=== PATIENT | female | born 1955 | race Caucasian/White ===

== ENCOUNTER → 2017-02-10 | Outpatient (CLI) | payer BC ==
--- NOTE | 2017-02-10 16:05 | MY ---
EXAMINATION: Bilateral digital mammography utilizing CAD. HISTORY: Screening exam. Comparison is made to previous studies dated 02/12/2016, 02/08/2015, 013. FINDINGS: Bilateral scattered fibroglandular densities. No suspicious calcifications, masses or a rchitectural distortions. No pathologic appearing lymph nodes, no abnormal skin thickening or nipp le inversion. CAD highlighted regions appear normal at this time. IMPRESSION: BI-RADS category I - negative mammogram. Continued screening according to ACR-ACS gu idelines suggested. THE FALSE-NEGATIVE RATE OF MAMMOGRAM IS APPROXIMATELY 10%. MANAGEMENT OF A PALPABLE ABNORMALITY MUST BE BASED UPON CLINICAL GROUNDS. SENSITIVITY FOR DETECTION OF ABNORMALITIES IN DENSE BREASTS IS LOW. NOTE: A letter will be sent to the patient regarding findings. [facility] -- PRAVEENA Suarez [phone] - FAX [phone]
== END ==
LOC: MW.MAM 09:54
PROVIDERS: ATTEND Obstetrics & Gynecology
DX: Z12.31 Encounter for screening mammogram for malignant neoplasm of breast (principal)
CPT/HCPCS: G0202; G0202-26

== ENCOUNTER 2019-07-05 15:08 | Observation (INO) | payer BC ==
[2019-07-05] MEDS ORDERED: Sodium Chloride 0.9% 10 ML Syringe FLUSH PRN (15:16)
[2019-07-05] MEDS ORDERED: Sodium Chloride 0.9% 2.5 ML Syringe FLUSH PRN (15:16)
[2019-07-05] MEDS ORDERED: Aspirin 81 MG Tab.Chew PO ONE (15:21)
--- NOTE | 2019-07-05 15:21 | EDM.PDOC ---
ED HPI GENERAL MEDICAL PROBLEM - General Stated Complaint: CHEST PAIN Time Seen by Provider: 07/05/19 15:15 Source of Information: Reports: Patient History Limitations: Reports: No Limitations - History of Present Illness INITIAL COMMENTS - FREE TEXT/NARRATIVE: HISTORY AND PHYSICAL: History of present illness: Patient is a 64-year-old female presenting to the emergency room for "chest pain ". Patient states that she has been "feeling funny for the last 2-3 days, especially at night". She informed me that she thought it was "just acid reflux however when I would wake up the next morning I would still have the pain". States pain is right above her heart, rating it at a 4 out of 10. Patient states it is constant and it radiates to the right side of her neck and in between her shoulders. Patient states she is also been "feeling weak, can't concentrate, and having [heart] fluttering". Patient states that earlier today she also had numbness and tingling in her extremities. She states she also feels short of breath right now, nauseous, and has a "really bad headache" in which "both eyes hurt". Patient states she used to smoke, but quit when she was approximately 29 years old. Patient denies any fever, chills, change in vision, syncope or near syncope. Denies any back pain or cough. Denies any abdominal pain, vomiting, diarrhea, constipation or dysuria. Has not noted any blood in urine or stool. Patient has been eating and drinking appropriately. Review of systems: As per history of present illness and below otherwise all systems reviewed and negative. Past medical history: As per history of present illness and as reviewed below otherwise noncontributory. Surgical history: As per history of present illness and as reviewed below otherwise noncontributory. Social history: See social history for further information Family history: As per history of present illness and as reviewed below otherwise noncontributory. Physical exam: General: Well-developed and well-nourished 64-year-old female. Alert and oriented. Nontoxic appearing and in no acute distress. HEENT: Atraumatic, normocephalic, pupils equal and reactive bilaterally, negative for conjunctival pallor or scleral icterus, mucous membranes moist, TMs normal bilaterally, throat clear, neck supple, nontender, trachea midline. No drooling or trismus noted. No meningeal signs. No hot potato voice noted. Lungs: Clear to auscultation, breath sounds equal bilaterally, chest nontender. Heart: S1S2, regular rate and rhythm without overt murmur Abdomen: Soft, nondistended, nontender. Negative for masses or hepatosplenomegaly. Negative for costovertebral tenderness. Skin: Intact, warm, dry. No lesions or rashes noted. Extremities: Atraumatic, moves all extremities per self without difficulty or deficits, negative for cords or calf pain. Neurovascular unremarkable. Neuro: Awake, alert, oriented. Cranial nerves II through XII unremarkable. Cerebellum unremarkable. Motor and sensory unremarkable throughout. Exam nonfocal. Notes: Patient had an echocardiogram done on 06/03/2018: Left ventricular ejection fraction estimated at 60-65%. Trace mitral and tricuspid valve regurgitation. Normal right ventricular systolic function. Chest pain went from a 5 to a 0 after 2 nitroglycerin. Her vital signs remained stable. Lab work is unremarkable. EKG shows a sinus rhythm with a rate of 79. We did talk about admission, she would like to stay. Dr. Purdy was consulted on her case. She will stay for observation with telemetry. Diagnostics: CBC, CMP, EKG, Troponin, Chest x-ray, TSH, UA Therapeutics: Aspirin, Saline Lock Impression: Chest Pain r/o SD Plan: Observation admission Definitive disposition and diagnosis as appropriate pending reevaluation and review of above. HEAD Pain Score (Numeric/FACES): 5 - Related Data Allergies Allergy/AdvReac Type Severity Reaction Status Date / Time No Known Allergies Allergy Verified 07/05/19 15:19 Home Meds: Home Meds Fluticasone Propionate [Flonase Allergy Relief] 1 spray NASBOTH DAILY 05/09/16 [ History] Propylene Glycol/Peg 400 [Systane Ultra 0.4-0.3% Eye Drp] 1 drop EYEBOTH ASDIRECTED 05/09/16 [History] Vit A/Vit C/Vit E/Zinc/Copper [Preservision] 1 tab PO BID 05/09/16 [History] Past Medical History HEENT History: Reports: Allergic Rhinitis, Otitis Media, Sinusitis Other HEENT History: wears glasses Cardiovascular History: Reports: None Respiratory History: Other Respiratory History: states possible sleep apnea, not diagnosed Gastrointestinal History: Reports: GERD Genitourinary History: Reports: None [employer] History: Reports: Musculoskeletal History: Reports: Back Pain, Chronic Neurological History: Reports: None Psychiatric History: Reports: None Endocrine/Metabolic History: Reports: None Hematologic History: Reports: None Immunologic History: Reports: None Oncologic (Cancer) History: Reports: None Dermatologic History: Reports: None - Past Surgical History HEENT Surgical History: Reports: Cataract Surgery ED ROS GENERAL - Review of Systems Review Of Systems: ROS reveals no pertinent complaints other than HPI. ED EXAM, GENERAL - Physical Exam Exam: See Below (See dictation) Course - Vital Signs Last Recorded V/S: Last Vital Signs Temp 97.4 F 07/05/19 15:16 Pulse 78 07/05/19 16:06 Resp 18 07/05/19 16:06 BP 105/53 L 07/05/19 16:06 Pulse Ox 96 07/05/19 16:06 - Orders/Labs/Meds Orders: Active Orders 24 hr Category Date Time Status Admission Status [Patient Status] [ADT] Stat ADT 07/05/19 16:18 Active EKG Documentation Completion [RC] STAT Care 07/05/19 15:16 Active UA RFX CHRISTOFER AND CULT IF INDIC [URIN] Stat Lab 07/05/19 15:16 Ordered Nitroglycerin [Nitrostat] Med 07/05/19 15:23 Active 0.4 mg SL Q5M PRN Sodium Chloride 0.9% [Normal Saline] 1,000 ml Med 07/05/19 16:00 Active IV STAT Sodium Chloride 0.9% [Saline Flush] Med 07/05/19 15:16 Active 10 ml FLUSH ASDIRECTED PRN Sodium Chloride 0.9% [Saline Flush] Med 07/05/19 15:16 Active 2.5 ml FLUSH ASDIRECTED PRN Saline Lock Insert [OM.PC] Stat Oth 07/05/19 15:16 Ordered Medication Orders Sodium Chloride (Normal Saline) 1,000 mls @ 999 mls/hr IV STAT ANTONY Last Admin: 07/05/19 15:51 Dose: 999 mls/hr Nitroglycerin (Nitrostat) 0.4 mg SL Q5M PRN PRN Reason: Chest Pain Last Admin: 07/05/19 15:43 Dose: 0.4 mg Admin: 07/05/19 15:38 Dose: 0.4 mg Sodium Chloride (Saline Flush) 10 ml FLUSH ASDIRECTED PRN PRN Reason: Keep Vein Open Last Admin: 07/05/19 15:38 Dose: 10 ml Sodium Chloride (Saline Flush) 2.5 ml FLUSH ASDIRECTED PRN PRN Reason: Keep Vein Open Last Admin: 07/05/19 15:38 Dose: 2.5 ml Labs: Laboratory Tests 07/05/19 07/05/19 07/05/19 Range/Units 15:16 15:20 15:20 WBC 8.55 (4.0-11.0) K/uL RBC 4.40 (4.30-5.90) M/uL Hgb 13.8 (12.0-16.0) g/dL Hct 40.9 (36.0-46.0) % MCV 93.0 (80.0-98.0) fL MCH 31.4 (27.0-32.0) pg MCHC 33.7 (31.0-37.0) g/dL RDW Std Deviation 44.1 (28.0-62.0) fl RDW Coeff of All 13 (11.0-15.0) % Plt Count 270 (150-400) K/uL MPV 8.70 (7.40-12.00) fL Neut % (Auto) 57.4 (48.0-80.0) % Lymph % (Auto) 32.4 (16.0-40.0) % [place] % (Auto) 7.7 (0.0-15.0) % Eos % (Auto) 2.0 (0.0-7.0) % Baso % (Auto) 0.5 (0.0-1.5) % Neut # (Auto) 4.9 (1.4-5.7) K/uL Lymph # (Auto) 2.8 H (0.6-2.4) K/uL [place] # (Auto) 0.7 (0.0-0.8) K/uL Eos # (Auto) 0.2 (0.0-0.7) K/uL Baso # (Auto) 0.0 (0.0-0.1) K/uL Nucleated RBC % 0.0 /100WBC Nucleated RBCs # 0 K/uL Sodium 140 (136-145) mmol/L Potassium 3.7 (3.5-5.1) mmol/L Chloride 103 (98-107) mmol/L Carbon Dioxide 24.1 (21.0-32.0) mmol/L BUN 19 H (7.0-18.0) mg/dL Creatinine 1.0 (0.6-1.0) mg/dL Est Cr Clr Drug Dosing 48.43 mL/min Estimated GFR (MDRD) 55.6 ml/min Glucose 107 H (74-106) mg/dL Calcium 9.2 (8.5-10.1) mg/dL Total Bilirubin 0.4 (0.2-1.0) mg/dL AST 19 (15-37) IU/L ALT 29 (14-63) IU/L Alkaline Phosphatase 128 H (46-116) U/L Troponin I < 0.050 (0.000-0.056) ng/mL Total Protein 7.6 (6.4-8.2) g/dL Albumin 3.7 (3.4-5.0) g/dL Globulin 3.9 (2.6-4.0) g/dL Albumin/Globulin Ratio 0.9 (0.9-1.6) TSH 3rd Generation 2.03 (0.36-3.74) uIU/mL Meds: Medications Generic Name Dose Route Start Last Admin Trade Name Freq PRN Reason Stop Dose Admin Sodium Chloride 1,000 mls @ 999 mls/hr 07/05/19 16:00 07/05/19 15:51 Normal Saline IV 999 mls/hr STAT ANTONY Administration Nitroglycerin 0.4 mg 07/05/19 15:23 07/05/19 15:43 Nitrostat SL 0.4 mg Q5M PRN Administration Chest Pain Sodium Chloride 10 ml 07/05/19 15:16 07/05/19 15:38 Saline Flush FLUSH 10 ml ASDIRECTED PRN Administration Keep Vein Open Sodium Chloride 2.5 ml 07/05/19 15:16 07/05/19 15:38 Saline Flush FLUSH 2.5 ml ASDIRECTED PRN Administration Keep Vein Open Discontinued Medications Generic Name Dose Route Start Last Admin Trade Name Freq PRN Reason Stop Dose Admin Aspirin 324 mg 07/05/19 15:21 07/05/19 15:37 Aspirin PO 07/05/19 15:22 324 mg ONETIME ONE Administration Departure - Departure Time of Disposition: 16:21 Disposition: Refer to Observation Clinical Impression: Chest pain, rule out acute myocardial infarction - Discharge Information Referrals: PCP,Unknown [Primary Care Provider] - - My Orders Last 24 Hours: My Active Orders 07/05/19 15:16 EKG Documentation Completion [RC] STAT UA RFX CHRISTOFER AND CULT IF INDIC [URIN] Stat Sodium Chloride 0.9% [Saline Flush] 10 ml FLUSH ASDIRECTED PRN Sodium Chloride 0.9% [Saline Flush] 2.5 ml FLUSH ASDIRECTED PRN Saline Lock Insert [OM.PC] Stat 07/05/19 15:23 Nitroglycerin [Nitrostat] 0.4 mg SL Q5M PRN 07/05/19 16:00 Sodium Chloride 0.9% [Normal Saline] 1,000 ml IV STAT 07/05/19 16:18 Admission Status [Patient Status] [ADT] Stat - Assessment/Plan Last 24 Hours: My Active Orders 07/05/19 15:16 EKG Documentation Completion [RC] STAT UA RFX CHRISTOFER AND CULT IF INDIC [URIN] Stat Sodium Chloride 0.9% [Saline Flush] 10 ml FLUSH ASDIRECTED PRN Sodium Chloride 0.9% [Saline Flush] 2.5 ml FLUSH ASDIRECTED PRN Saline Lock Insert [OM.PC] Stat 07/05/19 15:23 Nitroglycerin [Nitrostat] 0.4 mg SL Q5M PRN 07/05/19 16:00 Sodium Chloride 0.9% [Normal Saline] 1,000 ml IV STAT 07/05/19 16:18 Admission Status [Patient Status] [ADT] Stat
[2019-07-05] MEDS: Nitroglycerin 0.4 MG Tab.SL SL PRN ×2 (15:38→15:43)
[2019-07-05] MEDS ORDERED: Sodium Chloride 0.9% 1,000 ML IV SCH ×2 (16:00→17:15)
[2019-07-05 16:07] LABS: BLOOD UREA NITROGEN,BUN 19 mg/dL (7.0-18.0); CARBON DIOXIDE,CO2 24.1 mmol/L (21.0-32.0); CHLORIDE,CL 103 mmol/L (98-107); GLUCOSE RANDOM 107 mg/dL (74-106); POTASSIUM,K 3.7 mmol/L (3.5-5.1); SODIUM,NA 140 mmol/L (136-145)
--- NOTE | 2019-07-05 16:15 | CR ---
Indication: Chest pain. Technique: A single AP portable view of the chest was obtained. Comparison: None Findings: Heart is normal in size. The lungs are clear. No infiltrate, pleural effusion, or pneumothorax is identified. A small hiatal hernia is identified. Impression: No acute cardiopulmonary process. Dictated by Izzy Velásquez MD @ Jul 05 2019 4:12PM Signed by Dr. Izzy Velásquez @ Jul 05 2019 4:13PM
[2019-07-05] MEDS ORDERED: oxyCODONE 5 MG Tab PO PRN (17:07)
[2019-07-05] MEDS ORDERED: Temazepam 15 MG Cap PO PRN (17:07)
[2019-07-05] MEDS ORDERED: Ondansetron 4 MG Tab.DIS PO PRN (17:07)
[2019-07-05] MEDS ORDERED: Acetaminophen 325 MG Tab PO PRN (17:07)
[2019-07-05] MEDS ORDERED: Docusate Sodium 100 MG Cap PO PRN (17:07)
--- NOTE | 2019-07-05 17:14 | PCM.HP.2 ---
H&P History of Present Illness - General Date of Service: 07/05/19 Admit Problem/Dx: Admission Diagnosis/Problem Admission Diagnosis/Problem Chest pain, rule out acute myocardial infarction Source of Information: Patient History Limitations: Reports: No Limitations - History of Present Illness Initial Comments - Free Text/Narative: The patient is a 64-year-old lady who had presented to the emergency department after she had screening for upcoming outpatient surgery. She was reported to have an abnormal EKG which is not available and was told to go to the emergency room. The patient said that she feels that she has chest pain which are just described as little sharp and stabbing spots and that she has been feeling "funny" for the past 2-3 days. She had been rating the pain as a 4 out of 10. It had been rather constant and radiating to the right side of her neck and also between her shoulders. Patient has described weakness and fatigue as well. The patient had only been taking medication for dry eyes and allergy relief. She has no other complaints at the present time. Onset of Symptoms: Reports: Gradual Duration of Symptoms: Reports: Day(s):, Intermittent Location: Reports: Chest Quality: Reports: Ache, Stabbing Improves with: Reports: None Worsens with: Reports: None Associated Symptoms: Reports: Headaches HEAD Pain Score (Numeric/FACES): 5 - Related Data Allergies/Adverse Reactions: Allergies Allergy/AdvReac Type Severity Reaction Status Date / Time No Known Allergies Allergy Verified 07/05/19 18:23 Home Medications: Home Meds Fluticasone Propionate [Flonase Allergy Relief] 1 spray NASBOTH DAILY 05/09/16 [ History] Propylene Glycol/Peg 400 [Systane Ultra 0.4-0.3% Eye Drp] 1 drop EYEBOTH ASDIRECTED 05/09/16 [History] Vit A/Vit C/Vit E/Zinc/Copper [Preservision] 1 tab PO BID 05/09/16 [History] Past Medical History HEENT History: Reports: Allergic Rhinitis, Otitis Media, Sinusitis Other HEENT History: wears glasses Cardiovascular History: Reports: None Respiratory History: Other Respiratory History: states possible sleep apnea, not diagnosed Gastrointestinal History: Reports: GERD Genitourinary History: Reports: None 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: Musculoskeletal History: Reports: Back Pain, Chronic Neurological History: Reports: None Psychiatric History: Reports: None Endocrine/Metabolic History: Reports: None Hematologic History: Reports: None Immunologic History: Reports: None Oncologic (Cancer) History: Reports: None Dermatologic History: Reports: None - Infectious Disease History Infectious Disease History: Reports: Chicken Pox, Measles - Past Surgical History HEENT Surgical History: Reports: Cataract Surgery Social & Family History - Family History Family Medical History: Noncontributory - Tobacco Use Smoking Status *Q: Former Smoker Used Tobacco, but Quit: Yes Month/Year Tobacco Last Used: 02/1988 - Caffeine Use Caffeine Use: Reports: None - Alcohol Use Alcohol Use History: No - Living Situation & Occupation Living situation: Reports: Occupation: Retired H&P Review of Systems - Review of Systems: Review Of Systems: See Below General: Reports: Weakness HEENT: Reports: No Symptoms Pulmonary: Reports: No Symptoms Cardiovascular: Reports: Chest Pain, Palpitations Gastrointestinal: Reports: No Symptoms Genitourinary: Reports: No Symptoms Musculoskeletal: Reports: No Symptoms Skin: Reports: No Symptoms Psychiatric: Reports: No Symptoms Neurological: Reports: No Symptoms Hematologic/Lymphatic: Reports: No Symptoms Immunologic: Reports: No Symptoms Exam - Exam Exam: See Below - Vital Signs Vital Signs: Last Vital Signs Temp 36.8 C 07/05/19 16:34 Pulse 75 07/05/19 16:34 Resp 18 07/05/19 16:34 BP 116/67 07/05/19 16:34 Pulse Ox 96 07/05/19 16:34 Weight: 82.554 kg - Exam Quality Assessment: No: Supplemental Oxygen General: Alert, Oriented, Cooperative HEENT: Conjunctiva Clear, EACs Clear, EOMI, Mucosa Moist & [place], PERRLA Neck: Supple, Trachea Midline Lungs: Clear to Auscultation, Normal Respiratory Effort, Other (Tenderness to palpation left costal margin upper sternal border) Cardiovascular: Regular Rate, Regular Rhythm GI/Abdominal Exam: Normal Bowel Sounds, Soft, No Distention. No: Guarding, Rigid, Rebound Back Exam: Normal Inspection, Full Range of Motion Extremities: Normal Inspection, Normal Range of Motion, No Pedal Edema Skin: Warm, Dry, Intact Neurological: Cranial Nerves Intact Neuro Extensive - Mental Status: Alert, Oriented x3 Psychiatric: Alert, Normal Affect, Normal Mood - Patient Data Lab Results Last 24 hrs: Laboratory Results - last 24 hr 07/05/19 07/05/19 07/05/19 Range/Units 15:16 15:20 15:20 WBC 8.55 (4.0-11.0) K/uL RBC 4.40 (4.30-5.90) M/uL Hgb 13.8 (12.0-16.0) g/dL Hct 40.9 (36.0-46.0) % MCV 93.0 (80.0-98.0) fL MCH 31.4 (27.0-32.0) pg MCHC 33.7 (31.0-37.0) g/dL RDW Std Deviation 44.1 (28.0-62.0) fl RDW Coeff of All 13 (11.0-15.0) % Plt Count 270 (150-400) K/uL MPV 8.70 (7.40-12.00) fL Neut % (Auto) 57.4 (48.0-80.0) % Lymph % (Auto) 32.4 (16.0-40.0) % [place] % (Auto) 7.7 (0.0-15.0) % Eos % (Auto) 2.0 (0.0-7.0) % Baso % (Auto) 0.5 (0.0-1.5) % Neut # (Auto) 4.9 (1.4-5.7) K/uL Lymph # (Auto) 2.8 H (0.6-2.4) K/uL [place] # (Auto) 0.7 (0.0-0.8) K/uL Eos # (Auto) 0.2 (0.0-0.7) K/uL Baso # (Auto) 0.0 (0.0-0.1) K/uL Nucleated RBC % 0.0 /100WBC Nucleated RBCs # 0 K/uL Sodium 140 (136-145) mmol/L Potassium 3.7 (3.5-5.1) mmol/L Chloride 103 (98-107) mmol/L Carbon Dioxide 24.1 (21.0-32.0) mmol/L BUN 19 H (7.0-18.0) mg/dL Creatinine 1.0 (0.6-1.0) mg/dL Est Cr Clr Drug Dosing 48.43 mL/min Estimated GFR (MDRD) 55.6 ml/min Glucose 107 H (74-106) mg/dL Calcium 9.2 (8.5-10.1) mg/dL Total Bilirubin 0.4 (0.2-1.0) mg/dL AST 19 (15-37) IU/L ALT 29 (14-63) IU/L Alkaline Phosphatase 128 H (46-116) U/L Troponin I < 0.050 (0.000-0.056) ng/mL Total Protein 7.6 (6.4-8.2) g/dL Albumin 3.7 (3.4-5.0) g/dL Globulin 3.9 (2.6-4.0) g/dL Albumin/Globulin Ratio 0.9 (0.9-1.6) TSH 3rd Generation 2.03 (0.36-3.74) uIU/mL Result Diagrams: 07/06/19 02:58 07/06/19 02:58 EKG INTERPRETATION EKG Date: 07/06/19 Rhythm: NSR [place]: Normal P-Wave: Present QRS: Normal ST-T: Normal QT: Normal Comparison: NA - No Prior EKG - Problem List (1) Atypical chest pain SNOMED Code(s): 822866215 ICD Code: R07.89 - OTHER CHEST PAIN Status: Acute Current Visit: Yes Problem List Initiated/Reviewed/Updated: Yes Orders Last 24hrs: Active Orders 24 hr Category Date Time Status Admission Status [Patient Status] [ADT] Stat ADT 07/05/19 16:18 Active Cardiac Monitoring [RC] CONTINUOUS Care 07/05/19 17:08 Ordered EKG Documentation Completion [RC] AM Care 07/06/19 08:00 Ordered EKG Documentation Completion [RC] STAT Care 07/05/19 15:16 Active Oxygen Therapy [RC] PRN Care 07/05/19 17:07 Ordered Up With Assistance [RC] ASDIRECTED Care 07/05/19 17:07 Ordered VTE/DVT Education [RC] PER UNIT ROUTINE Care 07/05/19 17:07 Ordered Vital Signs [RC] Q4H Care 07/05/19 17:07 Ordered Heart Healthy Diet [DIET] Diet 07/06/19 Breakfast Ordered BASIC METABOLIC PANEL,BMP [CHEM] AM Lab 07/06/19 05:11 Ordered CBC WITH AUTO DIFF [HEME] AM Lab 07/06/19 05:11 Ordered TROPONIN I [CHEM] Q6H Lab 07/05/19 21:00 Ordered TROPONIN I [CHEM] Q6H Lab 07/06/19 03:00 Ordered UA RFX CHRISTOFER AND CULT IF INDIC [URIN] Stat Lab 07/05/19 15:16 Ordered Acetaminophen [Tylenol] Med 07/05/19 17:07 Ordered 650 mg PO Q4H PRN Docusate Sodium [Colace] Med 07/05/19 17:07 Ordered 100 mg PO BID PRN Fluticasone Propionate [Flonase Allergy Relief] Med 07/06/19 09:00 Ordered 1 spray NASBOTH DAILY Heparin Sodium Med 07/05/19 17:15 Ordered 5,000 units SUBCUT Q8H Nitroglycerin [Nitrostat] Med 07/05/19 15:23 Active 0.4 mg SL Q5M PRN Ondansetron [Zofran ODT] Med 07/05/19 17:07 Ordered 4 mg PO Q6H PRN Propylene Glycol/Peg 400 [Systane Ultra 0.4-0.3% Eye Med 07/05/19 17:15 Ordered Drp] 1 drop EYEBOTH ASDIRECTED Sodium Chloride 0.9% [Normal Saline] 1,000 ml Med 07/05/19 17:15 Ordered IV ASDIRECTED Sodium Chloride 0.9% [Normal Saline] 1,000 ml Med 07/05/19 16:00 Active IV STAT Sodium Chloride 0.9% [Saline Flush] Med 07/05/19 15:16 Active 10 ml FLUSH ASDIRECTED PRN Sodium Chloride 0.9% [Saline Flush] Med 07/05/19 15:16 Active 2.5 ml FLUSH ASDIRECTED PRN Temazepam [Restoril] Med 07/05/19 17:07 Ordered 15 mg PO BEDTIME PRN Vit A/Vit C/Vit E/Zinc/Copper [Preservision] Med 07/05/19 21:00 Ordered 1 tab PO BID oxyCODONE Med 07/05/19 17:07 Ordered 5 mg PO Q4H PRN Saline Lock Insert [OM.PC] Stat Oth 07/05/19 15:16 Ordered Resuscitation Status Routine Resus Stat 07/05/19 17:07 Ordered Medication Orders Acetaminophen (Tylenol) 650 mg PO Q4H PRN PRN Reason: Pain (Mild 1-3)/fever Docusate Sodium (Colace) 100 mg PO BID PRN PRN Reason: Constipation Heparin Sodium (Porcine) (Heparin Sodium) 5,000 units SUBCUT Q8H ANTONY Sodium Chloride (Normal Saline) 1,000 mls @ 999 mls/hr IV STAT ANTONY Last Admin: 07/05/19 15:51 Dose: 999 mls/hr Sodium Chloride (Normal Saline) 1,000 mls @ 75 mls/hr IV ASDIRECTED ANTONY Nitroglycerin (Nitrostat) 0.4 mg SL Q5M PRN PRN Reason: Chest Pain Last Admin: 07/05/19 15:43 Dose: 0.4 mg Admin: 07/05/19 15:38 Dose: 0.4 mg Ondansetron HCl (Zofran Odt) 4 mg PO Q6H PRN PRN Reason: nausea, able to take PO Oxycodone HCl (Oxycodone) 5 mg PO Q4H PRN PRN Reason: Pain (moderate 4-6) Fluticasone Propionate [Flonase Allergy Relief] 1 each NASBOTH DAILY [facility] Propylene Glycol/Peg 400 [Systane Ultra 0.4-0.3% Eye Drp] 1 each EYEBOTH ASDIRECTED [facility] Vit A/Vit C/Vit E/Zinc/Copper [ Preservision] 1 each PO BID [facility] Sodium Chloride (Saline Flush) 10 ml FLUSH ASDIRECTED PRN PRN Reason: Keep Vein Open Last Admin: 07/05/19 15:38 Dose: 10 ml Sodium Chloride (Saline Flush) 2.5 ml FLUSH ASDIRECTED PRN PRN Reason: Keep Vein Open Last Admin: 07/05/19 15:38 Dose: 2.5 ml Temazepam (Restoril) 15 mg PO BEDTIME PRN PRN Reason: Sleep Assessment/Plan Comment:: Patient is an otherwise healthy 64-year-old lady who has a rather atypical presentation however, she will be admitted to rule out myocardial issues. I've ordered patient be kept on telemetry. The patient will have 2 sets of troponins times every 6 hours. She'll be kept on a heart healthy diet. She's been encouraged to ambulate. Repeat EKG and laboratory testings have been ordered for the morning. If the patient is otherwise stable, with no overnight telemetry events she should be appropriate for discharge tomorrow. - Mortality Measure Prognosis:: Good
[2019-07-05] MEDS ORDERED: PROPYLENE GLYCOL EYEBOTH SCH (17:15)
[2019-07-05] MEDS ORDERED: Heparin Sodium 5,000 Units/ML Vial SUBCUT SCH (17:15)
[2019-07-05] MEDS ORDERED: PEG EYEBOTH SCH (17:15)
[2019-07-05] MEDS: Heparin Sodium 5,000 Units/ML Vial SUBCUT SCH (18:52)
[2019-07-05] MEDS: Vit A/Vit C/Vit E/Zinc/Copper [Preservision] PO SCH (20:38)
[2019-07-06 03:18] LABS: CARBON DIOXIDE,CO2 25.5 mmol/L (21.0-32.0)
[2019-07-06] MEDS: Heparin Sodium 5,000 Units/ML Vial SUBCUT SCH (03:22)
--- NOTE | 2019-07-06 07:58 | PCM.DCSUM1 ---
Discharge Summary - Hospital Course HPI Initial Comments: The patient was admitted secondary to atypical chest pain. Diagnosis: Stroke: No - Discharge Data Discharge Date: 07/06/19 Discharge Disposition: Home, Self-Care 01 Condition: Good - Referral to Home Health Primary Care Physician: PCP Unknown - Discharge Diagnosis/Problem(s) (1) Atypical chest pain SNOMED Code(s): 835780984 ICD Code: R07.89 - OTHER CHEST PAIN Status: Resolved Priority: High Current Visit: Yes - Patient Summary/Data Hospital Course: The patient is a 64-year-old lady who had presented to the emergency department after she had screening for upcoming outpatient surgery. The patient was scheduled to have bilateral external auditory canals surgery. She was reported to have an abnormal EKG which is not available and was told to go to the emergency room. The patient said that she feels that she has chest pain which are just described as little sharp and stabbing spots and that she has been feeling "funny" for the past 2-3 days. She had been rating the pain as a 4 out of 10. It had been rather constant and radiating to the right side of her neck and also between her shoulders. The patient was kept on telemetry overnight. There were no events. EKG obtained on day of discharge was normal and was compared to previous EKG. The patient was also noted to have normal CBC and essentially normal basic metabolic panel. Urinalysis was essentially negative as well.The patient also had 3 sets of troponins which were essentially undetectable. The patient had no discernible overnight events. Her pain had resolved. The patient has been recommended to continue with her appropriate heart healthy diet. She is also to have activity as tolerated. Patient should follow-up with her primary care physician as well as specialist. The patient has been otherwise hemodynamically stable. She has been discharged from acute hospitalization with recommendations listed above. In accordance with the ACC/ AHA guidelines of 2012 the patient should be at low risk for perspective surgery. - Patient Instructions Diet: Heart Healthy Diet Activity: As Tolerated - Discharge Plan *PRESCRIPTION DRUG MONITORING PROGRAM REVIEWED*: No *COPY OF PRESCRIPTION DRUG MONITORING REPORT IN PATIENT HANS: No Home Medications: Home Meds Fluticasone Propionate [Flonase Allergy Relief] 1 spray NASBOTH DAILY 05/09/16 [ History] Propylene Glycol/Peg 400 [Systane Ultra 0.4-0.3% Eye Drp] 1 drop EYEBOTH ASDIRECTED 05/09/16 [History] Vit A/Vit C/Vit E/Zinc/Copper [Preservision] 1 tab PO BID 05/09/16 [History] Oxygen Therapy Mode: Room Air Patient Handouts: Nonspecific Chest Pain Forms: ED Department Discharge Referrals: Carlos Alberto Myers MD [Ordering Only Provider] - - Discharge Summary/Plan Comment DC Time >30 min.: Yes - General Info Date of Service: 07/06/19 Admission Dx/Problem (Free Text: Admission Diagnosis/Problem Admission Diagnosis/Problem atypical chest pain, acute coronary syndrome ruled out Functional Status: Reports: Pain Controlled - Review of Systems General: Reports: No Symptoms HEENT: Reports: No Symptoms Pulmonary: Reports: No Symptoms Cardiovascular: Reports: No Symptoms Gastrointestinal: Reports: No Symptoms Genitourinary: Reports: No Symptoms Musculoskeletal: Reports: No Symptoms Skin: Reports: No Symptoms Neurological: Reports: No Symptoms Psychiatric: Reports: No Symptoms - Patient Data Vitals - Most Recent: Last Vital Signs Temp 36.5 C 07/06/19 03:21 Pulse 56 L 07/06/19 03:21 Resp 16 07/06/19 03:21 BP 116/58 L 07/06/19 03:21 Pulse Ox 93 L 07/06/19 03:21 Weight - Most Recent: 82.554 kg I&O - Last 24 hours: Intake & Output 07/05/19 07/06/19 07/06/19 22:59 06:59 14:59 Intake Total 800 Output Total 1800 Balance -1000 Lab Results - Last 24 hrs: Laboratory Results - last 24 hr 07/05/19 07/05/19 07/05/19 Range/Units 15:16 15:20 15:20 WBC 8.55 (4.0-11.0) K/uL RBC 4.40 (4.30-5.90) M/uL Hgb 13.8 (12.0-16.0) g/dL Hct 40.9 (36.0-46.0) % MCV 93.0 (80.0-98.0) fL MCH 31.4 (27.0-32.0) pg MCHC 33.7 (31.0-37.0) g/dL RDW Std Deviation 44.1 (28.0-62.0) fl RDW Coeff of All 13 (11.0-15.0) % Plt Count 270 (150-400) K/uL MPV 8.70 (7.40-12.00) fL Neut % (Auto) 57.4 (48.0-80.0) % Lymph % (Auto) 32.4 (16.0-40.0) % Dukes % (Auto) 7.7 (0.0-15.0) % Eos % (Auto) 2.0 (0.0-7.0) % Baso % (Auto) 0.5 (0.0-1.5) % Neut # (Auto) 4.9 (1.4-5.7) K/uL Lymph # (Auto) 2.8 H (0.6-2.4) K/uL Dukes # (Auto) 0.7 (0.0-0.8) K/uL Eos # (Auto) 0.2 (0.0-0.7) K/uL Baso # (Auto) 0.0 (0.0-0.1) K/uL Nucleated RBC % 0.0 /100WBC Nucleated RBCs # 0 K/uL Sodium 140 (136-145) mmol/L Potassium 3.7 (3.5-5.1) mmol/L Chloride 103 (98-107) mmol/L Carbon Dioxide 24.1 (21.0-32.0) mmol/L BUN 19 H (7.0-18.0) mg/dL Creatinine 1.0 (0.6-1.0) mg/dL Est Cr Clr Drug Dosing 48.43 mL/min Estimated GFR (MDRD) 55.6 ml/min Glucose 107 H (74-106) mg/dL Calcium 9.2 (8.5-10.1) mg/dL Total Bilirubin 0.4 (0.2-1.0) mg/dL AST 19 (15-37) IU/L ALT 29 (14-63) IU/L Alkaline Phosphatase 128 H (46-116) U/L Troponin I < 0.050 (0.000-0.056) ng/mL Total Protein 7.6 (6.4-8.2) g/dL Albumin 3.7 (3.4-5.0) g/dL Globulin 3.9 (2.6-4.0) g/dL Albumin/Globulin Ratio 0.9 (0.9-1.6) TSH 3rd Generation 2.03 (0.36-3.74) uIU/mL Urine Color Urine Appearance Urine pH (5.0-8.0) Ur Specific [place] (1.001-1.035) Urine Protein (NEGATIVE) mg/dL Urine Glucose (UA) (NEGATIVE) mg/dL Urine Ketones (NEGATIVE) mg/dL Urine Occult Blood (NEGATIVE) Urine Nitrite (NEGATIVE) Urine Bilirubin (NEGATIVE) Urine Urobilinogen (<2.0) EU/dL Ur Leukocyte Esterase (NEGATIVE) Urine RBC (0-2/HPF) Urine WBC (0-5/HPF) Ur Epithelial Cells (NONE-FEW) Amorphous Sediment (NEGATIVE) Urine Bacteria (NEGATIVE) Urine Mucus (NONE-MOD) 07/05/19 07/05/19 07/06/19 Range/Units 18:45 21:15 02:58 WBC (4.0-11.0) K/uL RBC (4.30-5.90) M/uL Hgb (12.0-16.0) g/dL Hct (36.0-46.0) % MCV (80.0-98.0) fL MCH (27.0-32.0) pg MCHC (31.0-37.0) g/dL RDW Std Deviation (28.0-62.0) fl RDW Coeff of All (11.0-15.0) % Plt Count (150-400) K/uL MPV (7.40-12.00) fL Neut % (Auto) (48.0-80.0) % Lymph % (Auto) (16.0-40.0) % Dukes % (Auto) (0.0-15.0) % Eos % (Auto) (0.0-7.0) % Baso % (Auto) (0.0-1.5) % Neut # (Auto) (1.4-5.7) K/uL Lymph # (Auto) (0.6-2.4) K/uL Dukes # (Auto) (0.0-0.8) K/uL Eos # (Auto) (0.0-0.7) K/uL Baso # (Auto) (0.0-0.1) K/uL Nucleated RBC % /100WBC Nucleated RBCs # K/uL Sodium (136-145) mmol/L Potassium (3.5-5.1) mmol/L Chloride (98-107) mmol/L Carbon Dioxide (21.0-32.0) mmol/L BUN (7.0-18.0) mg/dL Creatinine (0.6-1.0) mg/dL Est Cr Clr Drug Dosing mL/min Estimated GFR (MDRD) ml/min Glucose (74-106) mg/dL Calcium (8.5-10.1) mg/dL Total Bilirubin (0.2-1.0) mg/dL AST (15-37) IU/L ALT (14-63) IU/L Alkaline Phosphatase (46-116) U/L Troponin I < 0.050 < 0.050 (0.000-0.056) ng/mL Total Protein (6.4-8.2) g/dL Albumin (3.4-5.0) g/dL Globulin (2.6-4.0) g/dL Albumin/Globulin Ratio (0.9-1.6) TSH 3rd Generation (0.36-3.74) uIU/mL Urine Color YELLOW Urine Appearance CLEAR Urine pH 5.0 (5.0-8.0) Ur Specific [place] 1.020 (1.001-1.035) Urine Protein NEGATIVE (NEGATIVE) mg/dL Urine Glucose (UA) NEGATIVE (NEGATIVE) mg/dL Urine Ketones NEGATIVE (NEGATIVE) mg/dL Urine Occult Blood NEGATIVE (NEGATIVE) Urine Nitrite NEGATIVE (NEGATIVE) Urine Bilirubin NEGATIVE (NEGATIVE) Urine Urobilinogen 0.2 (<2.0) EU/dL Ur Leukocyte Esterase SMALL H (NEGATIVE) Urine RBC 0-2 (0-2/HPF) Urine WBC 2-5 (0-5/HPF) Ur Epithelial Cells FEW (NONE-FEW) Amorphous Sediment FEW (NEGATIVE) Urine Bacteria FEW (NEGATIVE) Urine Mucus FEW (NONE-MOD) 07/06/19 07/06/19 Range/Units 02:58 02:58 WBC 6.86 (4.0-11.0) K/uL RBC 4.02 L (4.30-5.90) M/uL Hgb 12.7 (12.0-16.0) g/dL Hct 37.5 (36.0-46.0) % MCV 93.3 (80.0-98.0) fL MCH 31.6 (27.0-32.0) pg MCHC 33.9 (31.0-37.0) g/dL RDW Std Deviation 44.7 (28.0-62.0) fl RDW Coeff of All 13 (11.0-15.0) % Plt Count 236 (150-400) K/uL MPV 8.40 (7.40-12.00) fL Neut % (Auto) 49.5 (48.0-80.0) % Lymph % (Auto) 37.3 (16.0-40.0) % Dukes % (Auto) 9.2 (0.0-15.0) % Eos % (Auto) 3.4 (0.0-7.0) % Baso % (Auto) 0.6 (0.0-1.5) % Neut # (Auto) 3.4 (1.4-5.7) K/uL Lymph # (Auto) 2.6 H (0.6-2.4) K/uL Dukes # (Auto) 0.6 (0.0-0.8) K/uL Eos # (Auto) 0.2 (0.0-0.7) K/uL Baso # (Auto) 0.0 (0.0-0.1) K/uL Nucleated RBC % 0.0 /100WBC Nucleated RBCs # 0 K/uL Sodium 143 (136-145) mmol/L Potassium 4.0 (3.5-5.1) mmol/L Chloride 108 H (98-107) mmol/L Carbon Dioxide 25.5 (21.0-32.0) mmol/L BUN 20 H (7.0-18.0) mg/dL Creatinine 1.0 (0.6-1.0) mg/dL Est Cr Clr Drug Dosing 48.43 mL/min Estimated GFR (MDRD) 55.6 ml/min Glucose 110 H (74-106) mg/dL Calcium 8.6 (8.5-10.1) mg/dL Total Bilirubin (0.2-1.0) mg/dL AST (15-37) IU/L ALT (14-63) IU/L Alkaline Phosphatase (46-116) U/L Troponin I (0.000-0.056) ng/mL Total Protein (6.4-8.2) g/dL Albumin (3.4-5.0) g/dL Globulin (2.6-4.0) g/dL Albumin/Globulin Ratio (0.9-1.6) TSH 3rd Generation (0.36-3.74) uIU/mL Urine Color Urine Appearance Urine pH (5.0-8.0) Ur Specific [place] (1.001-1.035) Urine Protein (NEGATIVE) mg/dL Urine Glucose (UA) (NEGATIVE) mg/dL Urine Ketones (NEGATIVE) mg/dL Urine Occult Blood (NEGATIVE) Urine Nitrite (NEGATIVE) Urine Bilirubin (NEGATIVE) Urine Urobilinogen (<2.0) EU/dL Ur Leukocyte Esterase (NEGATIVE) Urine RBC (0-2/HPF) Urine WBC (0-5/HPF) Ur Epithelial Cells (NONE-FEW) Amorphous Sediment (NEGATIVE) Urine Bacteria (NEGATIVE) Urine Mucus (NONE-MOD) Med Orders - Current: Current Medications Acetaminophen (Tylenol) 650 mg PO Q4H PRN PRN Reason: Pain (Mild 1-3)/fever Last Admin: 07/05/19 18:51 Dose: 650 mg Docusate Sodium (Colace) 100 mg PO BID PRN PRN Reason: Constipation Heparin Sodium (Porcine) (Heparin Sodium) 5,000 units SUBCUT Q8H [facility] Last Admin: 07/06/19 03:22 Dose: 5,000 units Nitroglycerin (Nitrostat) 0.4 mg SL Q5M PRN PRN Reason: Chest Pain Last Admin: 07/05/19 15:43 Dose: 0.4 mg Ondansetron HCl (Zofran Odt) 4 mg PO Q6H PRN PRN Reason: nausea, able to take PO Oxycodone HCl (Oxycodone) 5 mg PO Q4H PRN PRN Reason: Pain (moderate 4-6) Fluticasone Propionate [Flonase Allergy Relief] 1 each NASBOTH DAILY [facility] Propylene Glycol/Peg 400 [Systane Ultra 0.4-0.3% Eye Drp] 1 each EYEBOTH ASDIRECTED [facility] Vit A/Vit C/Vit E/Zinc/Copper [ Preservision] 1 each PO BID [facility] Last Admin: 10/07/19 20:38 Dose: Not Given Pneumococcal Polyvalent Vaccine (Pneumovax 23) 0.5 ml IM .ONCE ONE Stop: 07/06/19 10:01 Sodium Chloride (Saline Flush) 10 ml FLUSH ASDIRECTED PRN PRN Reason: Keep Vein Open Last Admin: 07/05/19 15:38 Dose: 10 ml Sodium Chloride (Saline Flush) 2.5 ml FLUSH ASDIRECTED PRN PRN Reason: Keep Vein Open Last Admin: 07/05/19 15:38 Dose: 2.5 ml Temazepam (Restoril) 15 mg PO BEDTIME PRN PRN Reason: Sleep Discontinued Medications Aspirin (Aspirin) 324 mg PO ONETIME ONE Stop: 07/05/19 15:22 Last Admin: 07/05/19 15:37 Dose: 324 mg Heparin Sodium (Porcine) (Heparin Sodium) 5,000 units SUBCUT Q8H [facility] Last Admin: 07/05/19 19:00 Dose: Not Given Sodium Chloride (Normal Saline) 1,000 mls @ 999 mls/hr IV STAT ANTONY Last Admin: 07/05/19 15:51 Dose: 999 mls/hr Sodium Chloride (Normal Saline) 1,000 mls @ 75 mls/hr IV ASDIRECTED ANTONY - Exam Quality Assessment: Denies: Supplemental Oxygen General: Reports: Alert, Oriented, Cooperative, No Acute Distress HEENT: Reports: Pupils Equal, Pupils Reactive, EOMI, Mucous Membr. Moist/[place] Neck: Reports: Supple, Trachea Midline Lungs: Reports: Clear to Auscultation, Normal Respiratory Effort Cardiovascular: Reports: Regular Rate, Regular Rhythm GI/Abdominal Exam: Normal Bowel Sounds, Soft, Non-Tender, No Distention Back Exam: Reports: Normal Inspection, Full Range of Motion Extremities: Normal Inspection, No Pedal Edema Skin: Reports: Warm, Dry, Intact Neurological: Reports: No New Focal Deficit, Normal Gait, Normal Speech Psy/Mental Status: Reports: Alert, Normal Affect, Normal Mood
[2019-07-06 08:02] VITALS: BP 127/62; PULSE 61
[2019-07-06] MEDS: Vit A/Vit C/Vit E/Zinc/Copper [Preservision] PO SCH (08:17)
[2019-07-06] MEDS ORDERED: Fluticasone Propionate [Flonase Allergy Relief] NASBOTH SCH (09:00)
[2019-07-06] MEDS ORDERED: Pneumococcal Polyvalent-23 Vaccine 0.5 ML SDV IM ONE (10:00)
== END 2019-07-06 09:45 | disposition home or self-care (01) ==
LOC: MW.ED 15:08 → MW.MS 16:54
PROVIDERS: ADMIT Internal Medicine; ATTEND Internal Medicine
DX: R07.89 Other chest pain (principal); K21.9 Gastro-esophageal reflux disease without esophagitis; Z87.891 Personal history of nicotine dependence
CPT/HCPCS: 36415; 71045; 80048; 80053; 81001; 84443; 84484; 85025; 87086; 93005; 96360; 96361; 96372; 99285; A9270; G0378; J1644; J7040; 99284

== ENCOUNTER 2023-11-03 09:35 | Emergency (ER) | payer MEDICARE, OTHER ==
[2023-11-03] MEDS: Sodium Chloride 0.9% 1,000 ML IV ONE (10:10)
[2023-11-03] MEDS: Ketorolac 30 MG/ML SDV IVPUSH ONE (10:10)
[2023-11-03 10:24] LABS: BASOPHILS ABSOLUTE AUTO 0.07 K/uL (0.00-0.20); BASOPHILS PERCENT AUTO 0.6 % (0.0-1.0); EOSINOPHILS PERCENT AUTO 0.9 % (0.0-6.0); HEMATOCRIT 38.8 % (37.0-47.0); HEMOGLOBIN 13.2 g/dL (12.0-16.0); IMMATURE GRAN ABSOLUTE AUTO 0.07 K/uL (0.00-0.05); IMMATURE GRAN PERCENT AUTO 0.6 % (0.0-0.4); LYMPHOCYTES ABSOLUTE AUTO 1.78 K/uL (1.00-4.80); LYMPHOCYTES PERCENT AUTO 16.5 % (24.0-44.0); MEAN CORPUSCULAR HEMOGLOBIN 31.6 pg (28.0-32.0); MEAN CORPUSCULAR VOLUME 92.8 fL (83.0-99.0); MEAN PLATELET VOLUME 8.2 fL (9.4-12.3); MONOCYTES ABSOLUTE AUTO 0.54 K/uL (0.00-0.80); NEUTROPHILS ABSOLUTE AUTO 8.23 K/uL (1.80-7.70); NEUTROPHILS PERCENT AUTO 76.4 % (41.0-71.0); PLATELET COUNT,PLT 223 K/uL (150-400); RED BLOOD CELL COUNT 4.18 M/uL (4.10-5.30); WHITE BLOOD CELL COUNT,WBC 10.79 K/uL (3.9-11.3)
[2023-11-03 10:49] LABS: A/G RATIO 0.9 (0.9-1.6); ALBUMIN 3.3 g/dL (3.4-5.0); BILIRUBIN TOTAL 0.4 mg/dL (0.2-1.0); CALCIUM 9.3 mg/dL (8.5-10.1); CARBON DIOXIDE,CO2 30.9 mmol/L (21.0-32.0); CREATININE 1.1 mg/dL (0.6-1.0); EST CRCL DRUG DOSING (CG) 41.68 mL/min; POTASSIUM,K 4.6 mmol/L (3.5-5.1); PROTEIN TOTAL,TP 6.8 g/dL (6.4-8.2)
[2023-11-03 11:19] LABS: APPEARANCE,URINE CLEAR; BILIRUBIN,URINE NEGATIVE (NEGATIVE); COLOR,URINE YELLOW; GLUCOSE,URINE NEGATIVE (NEGATIVE); KETONES,URINE NEGATIVE (NEGATIVE); LEUKOCYTE ESTERASE,URINE TRACE (NEGATIVE); NITRITE,URINE NEGATIVE (NEGATIVE); OCCULT BLOOD,URINE NEGATIVE (NEGATIVE); PROTEIN,URINE NEGATIVE (NEGATIVE); UROBILINOGEN,URINE 0.2 EU/dL (<2.0)
[2023-11-03 11:56] LABS: BACTERIA,URINE FEW (NEGATIVE); EPITHELIAL CELLS,URINE FEW (NONE-FEW); MUCUS,URINE LIGHT (NONE-MOD); RBC,URINE 0-1 (0-2/HPF); WBC,URINE 0-1 (0-5/HPF)
[2023-11-03 13:44] VITALS: BP 127/68; PULSE 89
== END 2023-11-03 13:43 | disposition home or self-care (01) ==
LOC: MW.ED 09:35
DX: S32.010A Wedge compression fracture of first lumbar vertebra, initial encounter for closed fracture (principal); M25.531 Pain in right wrist; W18.09XA Striking against other object with subsequent fall, initial encounter
CPT/HCPCS: 70450; 72125; 72128; 72131; 73110; 80053; 81001; 85025; 87086; 96361; 96374; 99284; J1885; J7030

== ENCOUNTER 2024-03-11 11:59 | Emergency (ER) | payer MEDICARE, OTHER ==
[2024-03-11] MEDS: Ondansetron 4 MG/2 ML SDV IVPUSH ONE (13:33)
[2024-03-11] MEDS: Lidocaine 4% 1 each Patch TOP ONE (13:33)
[2024-03-11] MEDS: Sodium Chloride 0.9% 2.5 ML Syringe FLUSH PRN (13:34)
[2024-03-11] MEDS: Sodium Chloride 0.9% 10 ML Syringe FLUSH PRN (13:34)
[2024-03-11 13:48] LABS: BASOPHILS ABSOLUTE AUTO 0.06 K/uL (0.00-0.20); BASOPHILS PERCENT AUTO 0.8 % (0.0-1.0); EOSINOPHILS ABSOLUTE AUTO 0.14 K/uL (0.00-0.45); HEMATOCRIT 39.7 % (37.0-47.0); HEMOGLOBIN 13.8 g/dL (12.0-16.0); IMMATURE GRAN ABSOLUTE AUTO 0.02 K/uL (0.00-0.05); IMMATURE GRAN PERCENT AUTO 0.3 % (0.0-0.4); LYMPHOCYTES ABSOLUTE AUTO 2.29 K/uL (1.00-4.80); LYMPHOCYTES PERCENT AUTO 32.3 % (24.0-44.0); MEAN CORPUSCULAR HEMOGLOBIN 32.1 pg (28.0-32.0); MEAN CORPUSCULAR HGB CONC 34.8 g/dL (32.0-36.0); MEAN CORPUSCULAR VOLUME 92.3 fL (83.0-99.0); MEAN PLATELET VOLUME 8.3 fL (9.4-12.3); MONOCYTES ABSOLUTE AUTO 0.63 K/uL (0.00-0.80); MONOCYTES PERCENT AUTO 8.9 % (0.0-8.0); NEUTROPHILS ABSOLUTE AUTO 3.94 K/uL (1.80-7.70); NEUTROPHILS PERCENT AUTO 55.7 % (41.0-71.0); PLATELET COUNT,PLT 245 K/uL (150-400); WHITE BLOOD CELL COUNT,WBC 7.08 K/uL (3.9-11.3)
[2024-03-11 14:21] LABS: A/G RATIO 0.9 (0.9-1.6); ALBUMIN 3.5 g/dL (3.4-5.0); BILIRUBIN TOTAL 0.3 mg/dL (0.2-1.0); CALCIUM 8.9 mg/dL (8.5-10.1); CARBON DIOXIDE,CO2 25.5 mmol/L (21.0-32.0); CREATININE 1.1 mg/dL (0.6-1.0); EST CRCL DRUG DOSING (CG) 41.68 mL/min; POTASSIUM,K 3.9 mmol/L (3.5-5.1); PROTEIN TOTAL,TP 7.2 g/dL (6.4-8.2)
[2024-03-11 15:48] VITALS: BP 132/74; PULSE 87
== END 2024-03-11 14:46 | disposition home or self-care (01) ==
LOC: MW.ED 11:59
DX: M25.512 Pain in left shoulder (principal); K44.9 Diaphragmatic hernia without obstruction or gangrene; K21.9 Gastro-esophageal reflux disease without esophagitis; Z88.8 Allergy status to other drugs, medicaments and biological substances; Z79.899 Other long term (current) drug therapy; Z90.49 Acquired absence of other specified parts of digestive tract; Z90.710 Acquired absence of both cervix and uterus
CPT/HCPCS: 36415; 71046; 73030; 80053; 83690; 84484; 85025; 93005; 96374; 99284; A9270; J2405; J3490; 93010

== ENCOUNTER 2024-05-11 07:42 | Day surgery (SDC) | payer MEDICARE, OTHER ==
[~2024-05-11 07:42] MED LIST: Sodium Chloride 0.9% 10 ML Syringe FLUSH PRN; Sodium Chloride 0.9% 2.5 ML Syringe FLUSH PRN; Sodium Chloride 0.9% 20 ML SDV IV PRN
[2024-05-11] MEDS ORDERED: propofoL 50 ML ONE (07:57)
[2024-05-11] MEDS: Lactated Ringers 1,000 ML IV SCH (08:10)
[2024-05-11 09:31] VITALS: BP 110/66; PULSE 64
== END 2024-05-11 10:05 | disposition home or self-care (01) ==
LOC: MW.SDS 07:42
PROVIDERS: ATTEND Surgery
DX: Z12.11 Encounter for screening for malignant neoplasm of colon (principal); K29.50 Unspecified chronic gastritis without bleeding; K21.9 Gastro-esophageal reflux disease without esophagitis; K44.9 Diaphragmatic hernia without obstruction or gangrene; K57.30 Diverticulosis of large intestine without perforation or abscess without bleeding; E78.00 Pure hypercholesterolemia, unspecified; Z79.899 Other long term (current) drug therapy; Z88.8 Allergy status to other drugs, medicaments and biological substances
CPT/HCPCS: 43239; 88305; 88342; G0121; J2704; J7120; 00813